=== PATIENT | male | born 1975 | race Caucasian/White ===

== ENCOUNTER 2018-06-01 17:22 | Emergency (ER) | payer MEDICAID ==
[~2018-06-01] VITALS: Ht 177.8 cm; Wt 100.0 kg
[2018-06-01 17:29] VITALS: BP 165/88
[2018-06-01] MEDS ORDERED: LISI2.5T47 PO (17:32)
[2018-06-01] MEDS ORDERED: AMLO2.5T45 PO (17:32)
== END 2018-06-01 22:44 | disposition left against medical advice (07) ==
LOC: ER 17:22
DX: R51 Headache (principal); Z53.21 Procedure and treatment not carried out due to patient leaving prior to being seen by health care provider